=== PATIENT | female | born 1990 | race Caucasian/White ===

== ENCOUNTER 2016-11-27 09:05 | Emergency (ER) | payer MEDICAID ==
--- NOTE | 2016-11-27 10:24 | ED Physician Chart ---
History of Present Illness - General Chief Complaint: Cough Stated Complaint: COUGH, EYE IRRITATION Source: Patient Exam Limitations: No Limitations - History of Present Illness Timing/Duration: week Cough Quality/Degree: severe Possible Cause: other Associated Symptoms: cough, nasal congestion, sore throat Allergies/Adverse Reactions: Allergies No Known Allergies Allergy (Verified 11/27/16 09:13) Past History - Past Medical History Medical History: No Pertinent History Surgical History: Other - Social History Smoking Status: Never smoker Hx Alcohol Use: No Hx Drug Use: No Family Medical History - Family Member Mother Other Medical History: denies family medical history Review of Systems - Review of Systems Constitutional: Denies: Chills, Fever EENTM: Reports: Nose congestion, Throat pain Respiratory: Reports: Cough Cardiology: Reports: No symptoms reported Gastrointestinal/Abdominal: Reports: No symptoms reported Genitourinary: Reports: No Symptoms Reported Musculoskeletal: Reports: No Symptoms Reported Skin: Reports: No Symptoms Reported. Denies: Rash Neurological: Denies: Headache Hematologic/Lymphatic: Reports: Swollen Glands Immunological/Allergic: Reports: No Symptoms Reported All Other Systems: Reviewed and Negative Physical Exam - Physical Exam General Appearance: WD/WN, no apparent distress ENT Exam: TMs normal, nasal congestion, pharyngeal erythema Neck: non-tender, full range of motion, supple, lymphadenopathy (L) Respiratory: chest non-tender, lungs clear, normal breath sounds Cardiovascular/Chest: normal peripheral pulses Gastrointestinal/Abdominal: Normal bowel sounds Neurologic: supervisor grips II-XII nml as tested, alert, normal mood/affect, oriented x 3 Skin Exam: normal color Departure - Departure Disposition: PT DISCHARGED HOME Condition: Stable Instructions: Upper Respiratory Infection, Adult, [id number] Referrals: Primary [Other] Comments: Diagnosis: URI, cough Disposition and discharge instructions: Patient was advised to use over-the- counter pain medicines including Tylenol and Advil for pain, mint tea with honey and lemon for sore throat and cough, patient may use [id number] cough syrup during the day and a small amount of Tylenol with Codeine elixir was prescribed for cough at night. ED Discharge Plan - Patient Disposition Admit/Discharge/Transfer: PT DISCHARGED HOME Condition at Disposition: Improved Instructions: Upper Respiratory Infection, Adult, [id number] Accepting Physician: Primary [Other] ED Discharge Plan Discharge/Transfer:: PT DISCHARGED HOME Condition at Disposition:: Stable Instructions: Upper Respiratory Infection, Adult, [id number] Referrals: , Primary [Other]
== END 2016-11-27 10:10 | disposition home or self-care (01) ==
LOC: ER 09:05
DX: J06.9 Acute upper respiratory infection, unspecified (principal)

== ENCOUNTER 2017-04-30 13:26 | Emergency (ER) | payer MEDICAID, OTHER ==
--- NOTE | 2017-04-30 14:06 | ED Physician Chart ---
ED Chief Complaint/HPI - Patient Information Date Seen:: 04/30/17 Time Seen:: 13:55 Chief Complaint:: Fever History of Present Illness:: onset x 2 weeks of intermittent fever with onset x 2 days of S/T, cough, and congestion; pt is eating and urinating well; no H/As, E/As, neck pain, C/P, SOB , Abd/Flank Pain, A/N/V/D/C, chills, or urinary s/s Allergies:: Allergies Allergy/AdvReac Type Severity Reaction Status Date / Time No Known Allergies Allergy Verified 11/27/16 09:13 Vitals:: Vital Signs - 8 hr 04/30/17 13:56 Temp 98.3 F HR 90 RR 18 BP 127/79 O2 Sat % 98 Historian:: Patient Review:: Nurse's Note Reviewed ED Review of Systems - Review of Systems General/Constitutional: Fever, No chills, No weight loss, No weakness, No diaphoresis, No edema, No loss of appetite Skin: No skin lesions, No rash, No bruising Head: No headache, No light-headedness Eyes: No loss of vision, No pain, No diplopia ENT: No earache, Nasal drainage, Sore throat, No tinnitus Neck: No neck pain, No swelling, No thyromegaly, No stiffness, No mass noted Cardio Vascular: No chest pain, No palpitations, No PND, No orthopnea, No edema Pulmonary: No SOB, Cough, No sputum, No wheezing GI: No nausea, No vomiting, No diarrhea, No pain, No melena, No hematochezia, No constipation, No hematemesis G/U: No dysuria, No frequency, No hematuria Survey Research Professor: No vaginal discharge, No abnormal vaginal bleed, No contraction Musculoskeletal: No bone or joint pain, No back pain, No muscle pain Endocrine: No polyuria, No polydipsia Psychiatric: No prior psych history, No depression, No anxiety, No suicidal ideation Hematopoietic: No bruising, No lymphadenopathy Allergic/Immuno: No urticaria, No angioedema Neurological: No syncope, No focal symptoms, No weakness, No paresthesia, No headache, No seizure, No dizziness, No confusion, No vertigo ED Past Medical History - Past Medical History Obtainable: Yes Past Medical History: No significant medical hx Family History: HTN Social History: Non Smoker, No Alcohol, No Drug Use, Surgical History: None Psychiatricy History: None Medication: Reviewed ED Physical Exam - Physical Examination General/Constitutional: Awake, Well-developed, well-nourished, Alert, No distress, GCS 15, Non-toxic appearing, Ambulatory Head: Atraumatic Eyes: Lids, conjuctiva normal, PERRL, EOMI Skin: Nl inspection, No rash, No skin lesions, No ecchymosis, Well hydrated, No lymphadenopathy ENMT: External ears, nose nl, TM canals nl, Nasal exam nl, Lips, teeth, gums nl , Tonsils nl Other ENMT comments:: Pharynx: Injected; no exudates/Abscesses; no FBs Neck: Nontender, Full ROM w/o pain, No JVD, No nuchal rigidity, No bruit, No mass, No stridor Respiratory: Nl effort/Exclusion, Clear to Auscultation, No Wheeze/Rhonchi/Rales Cardio Vascular: RRR, No murmur, gallop, rubs, NL S1 S2 GI: No tenderness/rebounding/guarding, No organomegaly, No hernia, Normal BS's, Nondistended, No mass/bruits, No McBurney tenderness : No CVA tenderness Extremities: No tenderness or effusion, Full ROM, normal strength in all extremities, No edema, Normal digits & nails Neuro/Psych: Alert/oriented, DTR's symmetric, Normal sensory exam, Normal motor strength, Judgement/insight normal, Mood normal, Normal gait, No focal deficits Misc: Normal back, No paraspinal tenderness ED Septic Shock - . Is Septic Shock (SBP<90, OR Lactate>4 mmol\L) present?: No - <6hrs of presentation: Vital Signs: Vital Signs - 8 hr 04/30/17 13:56 Temp 98.3 F HR 90 RR 18 BP 127/79 O2 Sat % 98 ED Reassessment (Disposition) - Reassessment Reassessment:: pt tolerated po fluids well in ER; pt is asymptomatic upon discharge Reassessment Condition:: Improved - Diagnosis Diagnosis:: Sore Throat; Cough/Congestion; Fever; Sinusitis; Pharyngitis; Bronchitis; URI - Aftercare/Follow up Instructions Aftercare/Follow-Up Instructions:: Counseled pt regarding lab results/diagnosis & need follow up, Refer to Discharge Instructions, Counseled pt & family regarding lab results/diagnosis & need follow up Medication Prescribed:: Rx: Amoxicillin 500mg po tid x 10 days; Phenergan Cough Syrup/Tylenol/Cool Mist Vaporizer: Take as prescribed - Patient Disposition Discharge/Transfer:: Home Condition at Disposition:: Stable, Improved (RTER prn if existing s/s reoccur and/or get worse and/or any other new s/s occur; ACIs given for all above Dx; Refer to ENT Specialist/Street Cleaning Equipment Operator CHRISTIAN; F/U with PMD in one day or prn; RTER prn if concerned)
== END 2017-04-30 14:10 | disposition home or self-care (01) ==
LOC: ER 13:26
DX: J02.9 Acute pharyngitis, unspecified (principal); J40 Bronchitis, not specified as acute or chronic; J06.9 Acute upper respiratory infection, unspecified; J32.9 Chronic sinusitis, unspecified
CPT/HCPCS: Z7502